=== PATIENT | female | born 1945 | race Caucasian/White ===

== ENCOUNTER 2018-04-08 11:46 | Emergency (ER) | payer OTHER ==
--- NOTE | 2018-04-08 12:01 | PDOC ---
Rapid Medical Evaluation Medical Evaluation: Allergies Allergy/AdvReac Type Severity Reaction Status Date / Time cefaclor [From Ceclor] Allergy Mild Hives Verified 10/22/17 06:41 furosemide [From Lasix] Allergy Verified 10/22/17 06:41 I have performed a brief in-person evaluation of this patient. The patient presents with a chief complaint of: Hx of HTN, metastatic breast CA , pre-DM; c/o elevated BP today; has mild VALENZUELA; denies N/V, CP, blurred vision, numbness/tingling/weakness of extremities; is compliant with her BP meds and took them this morning Pertinent physical exam findings: In NAD, no gross focal deficits I have ordered the following: Labs, EKG The patient will proceed to the ED for further evaluation. 04/08/18 11:57
[2018-04-08 12:04] VITALS: BMI 30.2
[2018-04-08] MEDS ORDERED: amLODIPine BESYLATE 5 MG TABLET (FP) PO ONE (12:05)
--- NOTE | 2018-04-08 12:31 | PDOC ---
Attending Attestation - HPI HPI: 04/08/18 13:46 The patient is a 72 year old female, with a significant past medical history of hypertension, diabetes, hypothyroidism, lung cancer status post left lobectomy and metastatic breast cancer, who presents to the emergency department with elevated blood pressure. The patient reports a mild headache she states that this is the typical headache she gets when her blood pressure is elevated. She reports that she went to an urgent care this morning but was referred to the emergency department because her blood pressure was 200s/100s. She denies blurry vision, shortness of breath, chest pain, nausea, vomiting or any numbness /tingling/weakness of his extremities. The patient states that she took her blood pressure medications this morning. Allergies: Cefaclor; Hydrochlorothiazide. Past Surgical History: Left Lobectomy. Social History: Former smoker (quit in 2005). Denies alcohol or drug use. PCP: Dr. Graves - Physicial Exam PE: 04/08/18 13:46 GENERAL: The patient is in no acute distress. HEAD: Normal with no signs of trauma. EYES: PERRLA, EOMI, sclera anicteric, conjunctiva clear. ENT: Ears normal, nares patent, oropharynx clear without exudates. Moist mucous membranes. NECK: Normal range of motion, supple without lymphadenopathy, JVD, or masses. LUNGS: Breath sounds equal, clear to auscultation bilaterally. No wheezes, no crackles. HEART: Regular rate and rhythm, normal S1 and S2 without murmur, rub or gallop. ABDOMEN: Soft, nontender, normoactive bowel sounds. No guarding, no rebound. No masses palpable. EXTREMITIES: +1 pitting edema bilaterally. Normal range of motion. No clubbing or cyanosis. No erythema, or tenderness. NEUROLOGICAL: Cranial nerves II through XII grossly intact. Normal speech. No focal neurological deficits. MUSCULOSKELETAL: Back nontender to palpation. No CVA tenderness. SKIN: Warm, dry, normal turgor, no rashes or lesions noted. Documentation prepared by Rae Metzger, acting as medical care administrator for Isa Back MD. <Rae Faye - Last Filed: 04/08/18 13:46> - Resident Resident Name: Ye Middleton - ED Attending Attestation I have performed the following: I have examined & evaluated the patient, The case was reviewed & discussed with the resident, I agree w/resident's findings & plan, Exceptions are as noted - Medical Decision Making 04/08/18 13:33 72 yo F h/o Lung Cancer s/p lobectomy, h/o metastatic breast cancer being treated Presents to the ER with a complaint of elevated blood pressure She was seen in the urgent care today due to leg weakness Noted to have elevation in blood pressure Pt sent to the ER Pt reports having elevated blood pressure for several weeks (this was noted 2 weeks ago at Oral surgeon) EKG - NSR rate of 92 bpm, axis nml, intervals nml, no st elevation or depression , t waves flattened III, avF 04/09/18 10:26 Laboratory Tests 04/08/18 04/08/18 12:20 12:20 WBC 3.5 L Hgb 11.4 Hct 32.5 Plt Count 263 Creatine Kinase 162 Creatine Kinase Index 0.8 CK-MB (CK-2) 1.4 Troponin I < 0.02 04/09/18 10:26 No complaints of UTI UA positive Culture sent Will send Macrobid Call placed to pt pmd to update them on this patient's status They will see her in the office for follow up of her blood pressure clinical Impression: hypertension, initial presentation <Isa Back - Last Filed: 04/09/18 10:28>
[2018-04-08] MEDS ORDERED: amLODIPine BESYLATE 5 MG TABLET (FP) ONE (12:46)
[2018-04-08 12:56] LABS: BASO % 0.7 % (0-2.0); EOS % 0.9 % (0-4.5); HEMATOCRIT 32.5 % (32.4-45.2); HEMOGLOBIN 11.4 GM/dL (10.7-15.3); LYMPH % 27.5 % (8-40); MEAN CELL VOLUME 97.3 fl (80-96); MEAN PLT VOLUME 8.1 fl (7.5-11.1); MONO % 10.2 % (3.8-10.2); NEUT % 60.7 % (42.8-82.8); PLATELET COUNT 263 K/MM3 (134-434); RBC 3.34 M/mm3 (3.60-5.2); RDW 15.5 % (11.6-15.6); WHITE BLOOD COUNT 3.5 K/mm3 (4.0-10.0)
[2018-04-08] MEDS ORDERED: FUROSEMIDE 40 MG/4 ML INJECTABLE VIAL IVPUSH ONE (13:30)
[2018-04-08 13:42] LABS: ANION GAP 9 MMOL/L (8-16); BLOOD UREA NITROGEN 12 mg/dL (7-18); CALCIUM 9.8 mg/dL (8.5-10.1); CHLORIDE 106 mmol/L (98-107); CO2 25 mmol/L (21-32); CREATININE 1.3 mg/dL (0.55-1.3); GLUCOSE,RANDOM 100 mg/dL (74-106); POTASSIUM 4.6 mmol/L (3.5-5.1); SODIUM 140 mmol/L (136-145)
[2018-04-08 14:02] LABS: N-TERMINAL BNP 70.8 pg/ml (5-125)
[2018-04-08] MEDS ORDERED: FUROSEMIDE 40 MG/4 ML INJECTABLE VIAL ONE (14:05)
--- NOTE | 2018-04-08 14:23 | PDOC ---
History of Present Illness - General Chief Complaint: Blood Pressure Problem Stated Complaint: BLOOD PRESSURE PROBLEM Time Seen by Provider: 04/08/18 12:10 - History of Present Illness Initial Comments: 04/08/18 14:24 72F with pmh of htn presents to the ED with lung cancer s/p resection, high blood pressure and dm2 sent from urgent care for high blood pressure (202/100) and feeling of rubbery legs. Denies weakness, painful extremities. Developed a mild headache while waiting in the waiting room. Last BP check was 2 weeks ago at the dentist's office. Was also elevated at 202/ 100. PCP increased her dose of daily carvedilol but her BP was never rechecked after that. She briefly used to be on a diuretic but stopped because it made her feel dizzy. She now has leg swelling. Patient admits to a"terrible diet" due to limited type of foods she can eat ( only soft foods) due to her teeth problems. Denies fever, chest pain, shortness of breath, . 04/08/18 15:07 Past History - Past Medical History Allergies/Adverse Reactions: Allergies Allergy/AdvReac Type Severity Reaction Status Date / Time cefaclor [From Ceclor] Allergy Mild Hives Verified 04/08/18 11:57 hydrochlorothiazide Allergy Verified 04/08/18 13:29 Home Medications: Ambulatory Orders Alprazolam [Xanax] 0.5 mg PO BID PRN 05/26/14 Aspirin [ASA -] 81 mg PO DAILY 05/26/14 Atorvastatin Ca [Lipitor -] 20 mg PO HS 05/26/14 Docosahexanoic Acid/Epa [Fish Oil Softgel] 1 each PO DAILY 05/26/14 Levothyroxine [Synthroid -] 100 mcg PO DAILY 05/26/14 Metoprolol Succinate [Toprol Xl -] 1.5 tab PO DAILY 05/26/14 Potassium Chloride [Klor-Con] 20 meq PO DAILY 05/26/14 Tiotropium Turin [Spiriva -] 1 inh IH PRN PRN 05/26/14 Valsartan [Diovan] 2 tab PO DAILY 05/26/14 metFORMIN HCL [Glucophage -] 500 mg PO BID 05/26/14 Nitrofurantoin Monohyd/M-Cryst [Macrobid -] 100 mg PO BID #14 capsule 10/22/17 Cancer: Yes (H/O LUNG) COPD: No Diabetes: Yes (NIDM) HTN: Yes Psychiatric Problems: Yes (anxiety) Thyroid Disease: No (HYPO) - Surgical History Lung Surgery: Yes (1/3 LT LUNG REMOVED) - Immunization History Immunization Up to Date: Yes - Suicide/Smoking/Psychosocial Hx Smoking Status: No (QUIT 2006) Smoking History: Never smoked Have you smoked in the past 12 months: No Number of Cigarettes Smoked Daily: 0 Hx Alcohol Use: No Drug/Substance Use Hx: No Substance Use Type: None Review of Systems - Review of Systems Able to Perform ROS?: Yes Is the patient limited Pashto proficient: No Constitutional: No: Symptoms Reported HEENTM: No: Symptoms Reported Respiratory: No: Symptoms reported Cardiac (ROS): No: Symptoms Reported ABD/GI: No: Symptoms Reported : No: Symptoms Reported Musculoskeletal: No: Symptoms Reported Integumentary: Yes: Other (leg swelling) Neurological: No: Symptoms reported All Other Systems: Reviewed and Negative *Physical Exam - Vital Signs Last Vital Signs Temp Pulse Resp BP Pulse Ox 98.5 F 82 16 177/96 H 100 04/08/18 11:58 04/08/18 14:10 04/08/18 14:10 04/08/18 14:10 04/08/18 14:10 - Physical Exam General Appearance: Yes: Nourished, Appropriately Dressed. No: Apparent Distress HEENT: positive: EOMI, BERNIE, Normal ENT Inspection Respiratory/Chest: positive: Lungs Clear, Normal Breath Sounds. negative: Chest Tender, Respiratory Distress Cardiovascular: positive: Regular Rhythm, Regular Rate, S1, S2 Gastrointestinal/Abdominal: positive: Normal Bowel Sounds, Flat, Soft. negative : Tender Musculoskeletal: positive: Normal Inspection. negative: CVA Tenderness Extremity: positive: Delayed Capillary Refill, Other (skin tenting) Integumentary: positive: Other (bilateral pitting edema of b/l legs, worse on the right.) Moderate Sedation - Procedure Monitoring Vital Signs: Procedure Monitoring Vital Signs Temperature 98.5 F 04/08/18 11:58 Pulse Rate 82 04/08/18 14:10 Respiratory Rate 16 04/08/18 14:10 Blood Pressure 177/96 H 04/08/18 14:10 O2 Sat by Pulse Oximetry (%) 100 04/08/18 14:10 ED Treatment Course - LABORATORY CBC & Chemistry Diagram: 12/20/18 12:20 04/08/18 12:20 - ADDITIONAL ORDERS Additional order review: Laboratory Results 04/08/18 12:20 Sodium 140 Potassium 4.6 Chloride 106 Carbon Dioxide 25 Anion Gap 9 BUN 12 Creatinine 1.3 Creat Clearance w eGFR 40.38 Random Glucose 100 Calcium 9.8 Creatine Kinase 162 Creatine Kinase Index 0.8 CK-MB (CK-2) 1.4 Troponin I < 0.02 B-Natriuretic Peptide 70.8 04/08/18 12:20 RBC 3.34 L MCV 97.3 H MCHC 35.0 RDW 15.5 MPV 8.1 Neutrophils % 60.7 Lymphocytes % 27.5 D Monocytes % 10.2 Eosinophils % 0.9 Basophils % 0.7 - Medications Given in the ED: ED Medications Discontinued Medications Generic Name Dose Route Start Last Admin Trade Name Freq PRN Reason Stop Dose Admin Amlodipine Besylate 5 mg 04/08/18 12:05 04/08/18 12:54 Norvasc - PO 04/08/18 12:06 5 mg ONCE ONE Administration Furosemide 20 mg 04/08/18 13:30 04/08/18 14:14 Lasix Injection - IVPUSH 04/08/18 13:31 20 mg ONCE ONE Administration Medical Decision Making - Medical Decision Making 04/08/18 15:14 72f with uncontolled hypertension and b/l pitting edema. This patient hypertensive regimen in not controlled and she needs to be back on a diuretic. Will get basic labs to r/o metabolic 04/08/18 16:28 All labs negative, UA contaminated. Spoke to her PCp Dr. Loera who said patient is very not compliant with her medication.Will reach out to her for medication adjustment. BP down to 153 ok to dc *DC/Admit/Observation/Transfer Diagnosis at time of Disposition: Hypertension - Discharge Dispostion Disposition: HOME Condition at time of disposition: Improved Decision to Admit order: No - Referrals - Patient Instructions Printed Discharge Instructions: DI for High Blood Pressure Additional Instructions: Come back to the emergency department for any new, worsening or concerning symptom. - Post Discharge Activity
[2018-04-08 14:51] LABS: URINE APPEARANCE CLEAR; URINE BILIRUBIN NEGATIVE (<2.0 mg/dL); URINE COLOR LTYELLOW; URINE GLUCOSE (UA) NEGATIVE (NEGATIVE); URINE KETONE NEGATIVE (NEGATIVE); URINE LEUK ESTERASE 2+ (NEGATIVE); URINE NITRITE NEGATIVE (NEGATIVE); URINE PROTEIN NEGATIVE (NEGATIVE); URINE UROBILINOGEN NEGATIVE mg/dL (0.2-1.0)
[2018-04-08 16:00] LABS: EPI CELLS 2+ /HPF (FEW); URINE BACTERIA 1+ /hpf (NONE SEEN)
[2018-04-08 16:19] VITALS: BP 159/98; PULSE 90; TEMP 98
--- NOTE | 2018-04-08 16:57 | EKG ---
Test Reason : Blood Pressure : / mmHG Vent. Rate : 092 BPM Atrial Rate : 092 BPM P-R Int : 148 ms QRS Dur : 074 ms QT Int : 342 ms P-R-T Axes : 047 -11 012 degrees QTc Int : 422 ms POOR DATA QUALITY, INTERPRETATION MAY BE ADVERSELY AFFECTED NORMAL SINUS RHYTHM MINIMAL VOLTAGE CRITERIA FOR LVH, MAY BE NORMAL VARIANT CANNOT RULE OUT ANTERIOR INFARCT (CITED ON OR BEFORE 22-OCT-2017) ABNORMAL ECG WHEN COMPARED WITH ECG OF 22-OCT-2017 05:48, INVERTED T WAVES HAVE REPLACED NONSPECIFIC T WAVE ABNORMALITY IN INFERIOR LEADS Confirmed by VELIA ZUNIGA MD ([id number]) on 04/08/2018 4:57:00 PM Referred By: Confirmed By:VELIA ZUNIGA MD
== END 2018-04-08 17:00 | disposition home or self-care (01) ==
LOC: JER 11:46
PROC: 3E033GC Introduction of Other Therapeutic Substance into Peripheral Vein, Percutaneous Approach (ICD-10-PCS; principal; 2018-04-08)
DX: I10 Essential (primary) hypertension (principal); E11.9 Type 2 diabetes mellitus without complications; Z79.84 Long term (current) use of oral hypoglycemic drugs; E03.9 Hypothyroidism, unspecified; Z85.118 Personal history of other malignant neoplasm of bronchus and lung; Z85.3 Personal history of malignant neoplasm of breast; Z90.2 Acquired absence of lung [part of]
CPT/HCPCS: 36415; 80048; 81003; 81015; 82550; 82553; 83880; 84484; 85025; 87086; 93005; 93010; 99284-25

== ENCOUNTER 2020-10-30 17:06 | Inpatient (IN) | payer OTHER ==
[2020-10-30 20:03] LABS: HEMATOCRIT 32.9 % (32.4-45.2); HEMOGLOBIN 10.8 GM/dL (10.7-15.3); LYMPH % 4.2 % (8-40); MCH 29.1 pg (25.7-33.7); MCHC 32.7 g/dl (32.0-36.0); MEAN CELL VOLUME 88.9 fl (80-96); MEAN PLT VOLUME 7.9 fl (7.5-11.1); MONO % 6.5 % (3.8-10.2); NEUT % 88.3 % (42.8-82.8); PLATELET COUNT 339 10^3/uL (134-434); RDW 16.5 % (11.6-15.6); WHITE BLOOD COUNT 10.8 K/mm3 (4.0-10.0)
[2020-10-30 20:22] LABS: CHLORIDE 108 mmol/L (98-107); SODIUM 137 mmol/L (136-145)
[2020-10-30 20:24] LABS: ALBUMIN 1.8 g/dl (3.4-5.0); ANION GAP 9 MMOL/L (8-16); BLOOD UREA NITROGEN 22.6 mg/dL (7-18); CALCIUM 8.1 mg/dL (8.5-10.1); CO2 20 mmol/L (21-32); GLUCOSE,RANDOM 69 mg/dL (74-106)
[2020-10-30 20:27] LABS: CREATININE 1.3 mg/dL (0.55-1.3); SGOT/AST 54 U/L (15-37); SGPT/ALT 12 U/L (13-61)
[2020-10-30 20:29] LABS: TOT PROT 7.4 g/dl (6.4-8.2)
[2020-10-30 20:30] LABS: ALK PHOS 254 U/L (45-117); BILIRUBIN,TOTAL 0.4 mg/dL (0.2-1)
[2020-10-30] MEDS ORDERED: SODIUM CHLORIDE 0.9% 1000 ML INFUS.BAG IV ONE (20:55)
[2020-10-30 21:26] LABS: ANISOCYTOSIS 0; MACROCYTOSIS 0; PLATELET ESTIMATE NORMAL
[2020-10-30] MEDS ORDERED: DEXTROSE 50%-WATER - 25 GM/50 ML VIAL IVPUSH ONE (21:33)
[2020-10-30] MEDS ORDERED: DEXTROSE 50%-WATER 25 GM/50 ML DISP.SYRIN ONE (21:36)
[2020-10-30 21:44] LABS: EPI CELLS 5 /uL (0-25.1); HYALINE CASTS 10 /uL (0-3.1); PH,URINE 5.5 (5.0-8.0); URINE APPEARANCE TURBID; URINE BACTERIA 395 /uL (0-1359); URINE BILIRUBIN NEGATIVE (NEGATIVE); URINE COLOR DK YELLOW; URINE GLUCOSE (UA) NEGATIVE (NEGATIVE); URINE KETONE TRACE (NEGATIVE); URINE LEUK ESTERASE 3+ (NEGATIVE); URINE NITRITE NEGATIVE (NEGATIVE); URINE PROTEIN 2+ (NEGATIVE); URINE RBC 34 /uL (0-23.9); URINE WBC 642 /uL (0-25.8)
[2020-10-30] MEDS ORDERED: SULFAMETHOXAZOLE/TRIMETHOPRIM 800MG/160MG D.S. TABLET PO ONE (21:50)
[2020-10-30] MEDS ORDERED: SULFAMETHOXAZOLE/TRIMETHOPRIM 800MG/160MG D.S. TABLET ONE (22:41)
[2020-10-30 23:29] LABS: YEAST NONE SEEN (NEGATIVE)
[2020-10-31 04:29] VITALS: BMI 22.7
[2020-10-31] MEDS: INSULIN SLIDING SCALE (NOVOLOG) 1 VIAL SQ SCH ×4 (06:17→22:23)
[2020-10-31] MEDS ORDERED: ASPIRIN 325 MG ENTERIC COATED TABLET (FP) PO ONE (06:45)
[2020-10-31 07:55] LABS: BASO % 0.4 % (0-2.0); EOS % 0.1 % (0-4.5); HEMATOCRIT 26.2 % (32.4-45.2); HEMOGLOBIN 8.8 GM/dL (10.7-15.3); LYMPH % 6.6 % (8-40); MCH 29.7 pg (25.7-33.7); MCHC 33.4 g/dl (32.0-36.0); MEAN CELL VOLUME 88.9 fl (80-96); MEAN PLT VOLUME 7.6 fl (7.5-11.1); MONO % 8.8 % (3.8-10.2); NEUT % 84.1 % (42.8-82.8); PLATELET COUNT 282 10^3/uL (134-434); RBC 2.95 M/mm3 (3.60-5.2); RDW 16.3 % (11.6-15.6); WHITE BLOOD COUNT 10.7 K/mm3 (4.0-10.0)
[2020-10-31 08:08] LABS: ALBUMIN 1.7 g/dl (3.4-5.0); BLOOD UREA NITROGEN 23.8 mg/dL (7-18); MAGNESIUM 2.3 mg/dL (1.8-2.4)
[2020-10-31 08:11] LABS: CREATININE 1.3 mg/dL (0.55-1.3); PHOSPHOROUS 3.9 mg/dL (2.5-4.9)
[2020-10-31 08:12] LABS: BILIRUBIN,TOTAL 0.4 mg/dL (0.2-1)
[2020-10-31 08:13] LABS: TOT PROT 6.4 g/dl (6.4-8.2)
[2020-10-31 08:14] LABS: CHOLESTEROL 127 mg/dL (50-200); TRIGLYCERIDES 151 mg/dL (0-150)
[2020-10-31 08:15] LABS: LDL CHOLESTEROL (ONLY SJRH) 69 mg/dL (5-100)
[2020-10-31 08:17] LABS: HDL CHOLESTEROL 23 mg/dL (40-60)
[2020-10-31] MEDS: HEPARIN NA (PORCINE) 5,000 UNITS/ML 1ML VIAL SQ SCH ×2 (11:00→22:22)
[2020-10-31] MEDS: DEXTROSE 5%-LACTATED RINGERS 1,000 ML IV SCH (11:15)
[2020-10-31] MEDS: ALPRAZolam 0.25 MG TABLET PO PRN (16:48)
[2020-10-31] MEDS ORDERED: ATORVASTATIN CA 20 MG TABLET (FP) PO SCH (22:00)
[2020-11-01] MEDS: ALPRAZolam 0.25 MG TABLET PO PRN ×2 (03:19→21:11)
[2020-11-01] MEDS: INSULIN SLIDING SCALE (NOVOLOG) 1 VIAL SQ SCH ×4 (06:03→21:19)
[2020-11-01] MEDS: DEXTROSE 5%-LACTATED RINGERS 1,000 ML IV SCH (06:04)
[2020-11-01] MEDS ORDERED: LEVOTHYROXINE NA 88 MCG TABLET (FP) PO SCH (07:00)
[2020-11-01 07:36] LABS: BASO % 0.5 % (0-2.0); EOS % 0.1 % (0-4.5); HEMATOCRIT 26.5 % (32.4-45.2); HEMOGLOBIN 8.7 GM/dL (10.7-15.3); LYMPH % 7.9 % (8-40); MCH 29.1 pg (25.7-33.7); MCHC 32.8 g/dl (32.0-36.0); MEAN CELL VOLUME 88.8 fl (80-96); MEAN PLT VOLUME 7.8 fl (7.5-11.1); MONO % 7.3 % (3.8-10.2); NEUT % 84.2 % (42.8-82.8); PLATELET COUNT 252 10^3/uL (134-434); RBC 2.98 M/mm3 (3.60-5.2); RDW 16.6 % (11.6-15.6); WHITE BLOOD COUNT 8.7 K/mm3 (4.0-10.0)
[2020-11-01 08:13] LABS: CALCIUM 8.1 mg/dL (8.5-10.1)
[2020-11-01 08:14] LABS: ALBUMIN 1.8 g/dl (3.4-5.0)
[2020-11-01 08:17] LABS: CREATININE 1.4 mg/dL (0.55-1.3)
[2020-11-01 08:18] LABS: BILIRUBIN,TOTAL 0.3 mg/dL (0.2-1)
[2020-11-01 08:19] LABS: TOT PROT 6.7 g/dl (6.4-8.2)
[2020-11-01] MEDS ORDERED: LEVOTHYROXINE NA 100 MCG TABLET (FP) PO SCH (10:00)
[2020-11-01] MEDS: VALSARTAN 160 MG TABLET PO SCH ×2 (11:14→11:20)
[2020-11-01] MEDS: ASPIRIN 81 MG CHEWABLE TABLETS PO SCH ×2 (11:14→11:20)
[2020-11-01] MEDS: OMEGA-3 ACID ETHYL ESTERS (FATTY-ACIDS) 1 GM CAPSULE (FP) PO SCH ×2 (11:14→11:19)
[2020-11-01] MEDS: metoPROLOL SUCCINATE 25 MG TAB.SR.24H (FP) PO SCH ×2 (11:15→11:21)
[2020-11-01] MEDS: POTASSIUM CHLORIDE TABS 20 MEQ TABLET.ER (FP) PO SCH ×2 (11:15→11:21)
[2020-11-01] MEDS: HEPARIN NA (PORCINE) 5,000 UNITS/ML 1ML VIAL SQ SCH ×3 (11:15→21:12)
[2020-11-01] MEDS: TIOTROPIUM BROMIDE 2.5 MCG (SPIRIVA) RESPIMAT INHALER IH SCH ×2 (11:16→11:21)
[2020-11-01 14:48] LABS: BASO % 0.2 % (0-2.0); EOS % 0.1 % (0-4.5); HEMATOCRIT 28.7 % (32.4-45.2); HEMOGLOBIN 9.2 GM/dL (10.7-15.3); LYMPH % 7.3 % (8-40); MCH 28.7 pg (25.7-33.7); MEAN CELL VOLUME 89.9 fl (80-96); MEAN PLT VOLUME 7.9 fl (7.5-11.1); MONO % 8.3 % (3.8-10.2); NEUT % 84.1 % (42.8-82.8); PLATELET COUNT 268 10^3/uL (134-434); RBC 3.19 M/mm3 (3.60-5.2); RDW 16.1 % (11.6-15.6); WHITE BLOOD COUNT 10.1 K/mm3 (4.0-10.0)
[2020-11-01] MEDS: AMINO ACIDS/PROTEIN HYDROLYS 30 ML LIQUID.PKT PO SCH (16:59)
[2020-11-01] MEDS: ATORVASTATIN CA 20 MG TABLET (FP) PO SCH ×2 (21:11→23:59)
[2020-11-02] MEDS: LEVOTHYROXINE NA 88 MCG TABLET (FP) PO SCH (06:57)
[2020-11-02] MEDS: INSULIN SLIDING SCALE (NOVOLOG) 1 VIAL SQ SCH ×4 (06:57→22:06)
[2020-11-02 09:11] LABS: BASO % 0.2 % (0-2.0); EOS % 0.1 % (0-4.5); HEMATOCRIT 27.3 % (32.4-45.2); HEMOGLOBIN 8.8 GM/dL (10.7-15.3); LYMPH % 3.2 % (8-40); MCH 28.6 pg (25.7-33.7); MCHC 32.2 g/dl (32.0-36.0); MEAN PLT VOLUME 7.8 fl (7.5-11.1); MONO % 4.7 % (3.8-10.2); NEUT % 91.8 % (42.8-82.8); PLATELET COUNT 233 10^3/uL (134-434); RBC 3.06 M/mm3 (3.60-5.2); RDW 16.7 % (11.6-15.6); WHITE BLOOD COUNT 12.6 K/mm3 (4.0-10.0)
[2020-11-02 09:32] LABS: ALBUMIN 1.7 g/dl (3.4-5.0); CALCIUM 8.3 mg/dL (8.5-10.1)
[2020-11-02 09:36] LABS: CREATININE 1.5 mg/dL (0.55-1.3)
[2020-11-02 09:37] LABS: BILIRUBIN,TOTAL 0.8 mg/dL (0.2-1); TOT PROT 6.3 g/dl (6.4-8.2)
[2020-11-02] MEDS ORDERED: PT OWN MED DRAWER 7, Y5N ONE (10:16)
[2020-11-02] MEDS: metoPROLOL SUCCINATE 25 MG TAB.SR.24H (FP) PO SCH (10:21)
[2020-11-02] MEDS: VALSARTAN 160 MG TABLET PO SCH (10:21)
[2020-11-02] MEDS: ALPRAZolam 0.25 MG TABLET PO PRN (10:21)
[2020-11-02] MEDS: POTASSIUM CHLORIDE TABS 20 MEQ TABLET.ER (FP) PO SCH (10:22)
[2020-11-02] MEDS: OMEGA-3 ACID ETHYL ESTERS (FATTY-ACIDS) 1 GM CAPSULE (FP) PO SCH (10:22)
[2020-11-02] MEDS: ASPIRIN 81 MG CHEWABLE TABLETS PO SCH (10:22)
[2020-11-02] MEDS: HEPARIN NA (PORCINE) 5,000 UNITS/ML 1ML VIAL SQ SCH ×2 (10:22→22:06)
[2020-11-02] MEDS: MULTIVITAMINS (DAILY MVI) TABLET (FP) PO SCH (10:22)
[2020-11-02] MEDS: AMINO ACIDS/PROTEIN HYDROLYS 30 ML LIQUID.PKT PO SCH ×2 (10:22→17:15)
[2020-11-02] MEDS: TIOTROPIUM BROMIDE 2.5 MCG (SPIRIVA) RESPIMAT INHALER IH SCH (10:31)
[2020-11-02 10:35] LABS: ANISOCYTOSIS 0; MACROCYTOSIS 0; PLATELET ESTIMATE NORMAL
[2020-11-02 17:58] LABS: EPI CELLS 18 /uL (0-25.1); HYALINE CASTS 16 /uL (0-3.1); URINE APPEARANCE TURBID; URINE BILIRUBIN NEGATIVE (NEGATIVE); URINE COLOR DK YELLOW; URINE GLUCOSE (UA) NEGATIVE (NEGATIVE); URINE KETONE NEGATIVE (NEGATIVE); URINE LEUK ESTERASE 3+ (NEGATIVE); URINE NITRITE NEGATIVE (NEGATIVE); URINE PROTEIN 2+ (NEGATIVE); URINE WBC 5411 /uL (0-25.8)
[2020-11-02 20:12] LABS: URINE BACTERIA 304.2 /uL (0-1359); URINE RBC 497.9 /uL (0-23.9); YEAST MODERATE (NEGATIVE)
[2020-11-02 20:16] LABS: EPI CELLS 16 /uL (0-25.1); HYALINE CASTS 9 /uL (0-3.1); PH,URINE 5.5 (5.0-8.0); URINE APPEARANCE TURBID; URINE BACTERIA 135 /uL (0-1359); URINE BILIRUBIN NEGATIVE (NEGATIVE); URINE COLOR YELLOW; URINE GLUCOSE (UA) NEGATIVE (NEGATIVE); URINE KETONE TRACE (NEGATIVE); URINE LEUK ESTERASE 3+ (NEGATIVE); URINE NITRITE NEGATIVE (NEGATIVE); URINE PROTEIN 2+ (NEGATIVE); URINE WBC 1031 /uL (0-25.8)
[2020-11-02 20:17] LABS: URINE RBC 663.2 /uL (0-23.9)
[2020-11-02 20:18] LABS: YEAST MODERATE (NEGATIVE)
[2020-11-02] MEDS ORDERED: INSULIN (NOVOLOG) ASPART 100 UNITS/ML 10ML VIAL ONE (20:40)
[2020-11-02] MEDS: ATORVASTATIN CA 20 MG TABLET (FP) PO SCH (22:06)
[2020-11-03] MEDS: LEVOTHYROXINE NA 88 MCG TABLET (FP) PO SCH (06:17)
[2020-11-03] MEDS: INSULIN SLIDING SCALE (NOVOLOG) 1 VIAL SQ SCH ×4 (06:21→21:23)
[2020-11-03 08:31] LABS: BASO % 0.5 % (0-2.0); EOS % 0.3 % (0-4.5); HEMATOCRIT 27.5 % (32.4-45.2); HEMOGLOBIN 8.6 GM/dL (10.7-15.3); LYMPH % 3.4 % (8-40); MCH 28.2 pg (25.7-33.7); MCHC 31.3 g/dl (32.0-36.0); MEAN CELL VOLUME 90.2 fl (80-96); MEAN PLT VOLUME 8.1 fl (7.5-11.1); MONO % 3.5 % (3.8-10.2); NEUT % 92.3 % (42.8-82.8); PLATELET COUNT 207 10^3/uL (134-434); RBC 3.05 M/mm3 (3.60-5.2); RDW 16.8 % (11.6-15.6); WHITE BLOOD COUNT 12.6 K/mm3 (4.0-10.0)
[2020-11-03 08:54] LABS: ALBUMIN 1.5 g/dl (3.4-5.0); BLOOD UREA NITROGEN 26.3 mg/dL (7-18)
[2020-11-03 08:57] LABS: CREATININE 1.8 mg/dL (0.55-1.3)
[2020-11-03 08:59] LABS: BILIRUBIN,TOTAL 0.4 mg/dL (0.2-1); TOT PROT 5.9 g/dl (6.4-8.2)
[2020-11-03] MEDS: POTASSIUM CHLORIDE TABS 20 MEQ TABLET.ER (FP) PO SCH (09:45)
[2020-11-03] MEDS: ASPIRIN 81 MG CHEWABLE TABLETS PO SCH (09:45)
[2020-11-03] MEDS: AMINO ACIDS/PROTEIN HYDROLYS 30 ML LIQUID.PKT PO SCH ×3 (09:45→17:23)
[2020-11-03] MEDS: OMEGA-3 ACID ETHYL ESTERS (FATTY-ACIDS) 1 GM CAPSULE (FP) PO SCH (09:46)
[2020-11-03] MEDS: HEPARIN NA (PORCINE) 5,000 UNITS/ML 1ML VIAL SQ SCH ×2 (09:46→21:06)
[2020-11-03] MEDS: MULTIVITAMINS (DAILY MVI) TABLET (FP) PO SCH (09:46)
[2020-11-03] MEDS: metoPROLOL SUCCINATE 25 MG TAB.SR.24H (FP) PO SCH (09:51)
[2020-11-03] MEDS: VALSARTAN 160 MG TABLET PO SCH (09:51)
[2020-11-03 10:23] LABS: ANISOCYTOSIS 1+; MACROCYTOSIS 0; PLATELET ESTIMATE NORMAL; ROULEAU 1+
[2020-11-03] MEDS: ALPRAZolam 0.25 MG TABLET PO PRN (12:46)
[2020-11-03] MEDS: TIOTROPIUM BROMIDE 2.5 MCG (SPIRIVA) RESPIMAT INHALER IH SCH ×2 (12:50→12:55)
[2020-11-03] MEDS ORDERED: FLUCONAZOLE 100 MG TABLET (UD) PO ONE (13:00)
[2020-11-03] MEDS ORDERED: PT OWN MED DRAWER 7, Y5N ONE (14:41)
[2020-11-03] MEDS: ATORVASTATIN CA 20 MG TABLET (FP) PO SCH (21:07)
[2020-11-04] MEDS: INSULIN SLIDING SCALE (NOVOLOG) 1 VIAL SQ SCH ×4 (06:08→22:43)
[2020-11-04] MEDS: LEVOTHYROXINE NA 88 MCG TABLET (FP) PO SCH (06:39)
[2020-11-04] MEDS: AMINO ACIDS/PROTEIN HYDROLYS 30 ML LIQUID.PKT PO SCH ×2 (09:38→16:57)
[2020-11-04] MEDS: ALPRAZolam 0.25 MG TABLET PO PRN (10:08)
[2020-11-04] MEDS: ASPIRIN 81 MG CHEWABLE TABLETS PO SCH (10:09)
[2020-11-04] MEDS: MULTIVITAMINS (DAILY MVI) TABLET (FP) PO SCH (10:09)
[2020-11-04] MEDS: HEPARIN NA (PORCINE) 5,000 UNITS/ML 1ML VIAL SQ SCH ×2 (10:09→22:38)
[2020-11-04] MEDS: POTASSIUM CHLORIDE TABS 20 MEQ TABLET.ER (FP) PO SCH (10:09)
[2020-11-04] MEDS: OMEGA-3 ACID ETHYL ESTERS (FATTY-ACIDS) 1 GM CAPSULE (FP) PO SCH (10:09)
[2020-11-04] MEDS: TIOTROPIUM BROMIDE 2.5 MCG (SPIRIVA) RESPIMAT INHALER IH SCH (10:10)
[2020-11-04] MEDS: metoPROLOL SUCCINATE 25 MG TAB.SR.24H (FP) PO SCH (10:10)
[2020-11-04 12:07] LABS: BASO % 0.3 % (0-2.0); EOS % 0.3 % (0-4.5); HEMATOCRIT 28.4 % (32.4-45.2); HEMOGLOBIN 8.9 GM/dL (10.7-15.3); LYMPH % 3.6 % (8-40); MCH 28.3 pg (25.7-33.7); MCHC 31.3 g/dl (32.0-36.0); MEAN CELL VOLUME 90.5 fl (80-96); MEAN PLT VOLUME 8.2 fl (7.5-11.1); MONO % 2.7 % (3.8-10.2); NEUT % 93.1 % (42.8-82.8); PLATELET COUNT 226 10^3/uL (134-434); RBC 3.14 M/mm3 (3.60-5.2); RDW 16.8 % (11.6-15.6); WHITE BLOOD COUNT 15.3 K/mm3 (4.0-10.0)
[2020-11-04 12:27] LABS: CALCIUM 7.9 mg/dL (8.5-10.1)
[2020-11-04 12:28] LABS: ALBUMIN 1.4 g/dl (3.4-5.0); BLOOD UREA NITROGEN 29.8 mg/dL (7-18)
[2020-11-04 12:31] LABS: CREATININE 2.2 mg/dL (0.55-1.3)
[2020-11-04 12:32] LABS: BILIRUBIN,TOTAL 0.5 mg/dL (0.2-1)
[2020-11-04] MEDS: VALSARTAN 160 MG TABLET PO SCH (12:58)
[2020-11-04] MEDS: FLUCONAZOLE 100 MG TABLET (UD) PO SCH (13:05)
[2020-11-04 13:13] LABS: ANISOCYTOSIS 0; MACROCYTOSIS 0; OVALOCYTE 1+; PLATELET ESTIMATE NORMAL; TEAR DROP CELLS 1+
[2020-11-04] MEDS ORDERED: LOPERAMIDE HCL 2 MG CAPSULE PO ONE (16:15)
[2020-11-04] MEDS: LACTOBACILLUS ACIDOPHILUS 1 TABLET PO SCH (16:56)
[2020-11-04] MEDS: ATORVASTATIN CA 20 MG TABLET (FP) PO SCH (22:39)
[2020-11-05] MEDS ORDERED: SODIUM CHLORIDE 500 ML IV STA (05:56)
[2020-11-05] MEDS ORDERED: DEXTROSE 50%-WATER - 25 GM/50 ML VIAL IVPUSH ONE (05:58)
[2020-11-05] MEDS: INSULIN SLIDING SCALE (NOVOLOG) 1 VIAL SQ SCH ×4 (06:07→21:26)
[2020-11-05] MEDS: LEVOTHYROXINE NA 88 MCG TABLET (FP) PO SCH (06:08)
[2020-11-05] MEDS ORDERED: GLUCAGON 1 MG KIT IM ONE (06:32)
[2020-11-05] MEDS ORDERED: PT OWN MED DRAWER 7, Y5N ONE (09:27)
[2020-11-05] MEDS: AMINO ACIDS/PROTEIN HYDROLYS 30 ML LIQUID.PKT PO SCH ×2 (09:53→18:03)
[2020-11-05] MEDS: ASPIRIN 81 MG CHEWABLE TABLETS PO SCH (09:54)
[2020-11-05] MEDS: FLUCONAZOLE 100 MG TABLET (UD) PO SCH (09:54)
[2020-11-05] MEDS: LACTOBACILLUS ACIDOPHILUS 1 TABLET PO SCH (09:54)
[2020-11-05] MEDS: MULTIVITAMINS (DAILY MVI) TABLET (FP) PO SCH (09:54)
[2020-11-05] MEDS: POTASSIUM CHLORIDE TABS 20 MEQ TABLET.ER (FP) PO SCH (09:55)
[2020-11-05] MEDS: metoPROLOL SUCCINATE 25 MG TAB.SR.24H (FP) PO SCH (09:56)
[2020-11-05] MEDS: HEPARIN NA (PORCINE) 5,000 UNITS/ML 1ML VIAL SQ SCH ×2 (09:56→21:25)
[2020-11-05] MEDS: OMEGA-3 ACID ETHYL ESTERS (FATTY-ACIDS) 1 GM CAPSULE (FP) PO SCH (10:16)
[2020-11-05 11:42] LABS: BASO % 0.5 % (0-2.0); EOS % 0.7 % (0-4.5); HEMATOCRIT 25.6 % (32.4-45.2); HEMOGLOBIN 8.3 GM/dL (10.7-15.3); LYMPH % 5.4 % (8-40); MCH 28.6 pg (25.7-33.7); MCHC 32.3 g/dl (32.0-36.0); MEAN CELL VOLUME 88.3 fl (80-96); MONO % 4.1 % (3.8-10.2); NEUT % 89.3 % (42.8-82.8); PLATELET COUNT 243 10^3/uL (134-434); RDW 17.3 % (11.6-15.6); WHITE BLOOD COUNT 11.7 K/mm3 (4.0-10.0)
[2020-11-05 12:10] LABS: ALBUMIN 1.4 g/dl (3.4-5.0); BLOOD UREA NITROGEN 36.2 mg/dL (7-18); CALCIUM 7.8 mg/dL (8.5-10.1)
[2020-11-05 12:14] LABS: BILIRUBIN,TOTAL 0.4 mg/dL (0.2-1); CREATININE 2.2 mg/dL (0.55-1.3); TOT PROT 5.7 g/dl (6.4-8.2)
[2020-11-05] MEDS ORDERED: SODIUM CHLORIDE 1,000 ML IV SCH (12:30)
[2020-11-05 12:49] LABS: ANISOCYTOSIS 0; HELMET CELLS 0; HOWELL-JOLLY BODIES 0; MACROCYTOSIS 0; OVALOCYTE 0; PLATELET ESTIMATE NORMAL; ROULEAU 0; SICKELED CELLS 0; TARGET CELLS 0; TEAR DROP CELLS 0; TOXIC GRANULATION 0
[2020-11-05] MEDS ORDERED: ALPRAZolam 0.25 MG TABLET PO PRN (13:14)
[2020-11-05] MEDS: DEXTROSE 5%-0.45% SALINE 1,000 ML IV SCH ×2 (13:20→23:06)
[2020-11-05] MEDS: TIOTROPIUM BROMIDE 2.5 MCG (SPIRIVA) RESPIMAT INHALER IH SCH (13:21)
[2020-11-05] MEDS: ATORVASTATIN CA 20 MG TABLET (FP) PO SCH (21:25)
[2020-11-06] MEDS: LEVOTHYROXINE NA 88 MCG TABLET (FP) PO SCH (06:27)
[2020-11-06] MEDS: INSULIN SLIDING SCALE (NOVOLOG) 1 VIAL SQ SCH ×4 (06:28→21:36)
[2020-11-06 07:48] LABS: BASO % 0.4 % (0-2.0); HEMATOCRIT 24.7 % (32.4-45.2); MCH 28.9 pg (25.7-33.7); MCHC 32.2 g/dl (32.0-36.0); MEAN CELL VOLUME 89.7 fl (80-96); MEAN PLT VOLUME 8.2 fl (7.5-11.1); MONO % 8.1 % (3.8-10.2); NEUT % 84.5 % (42.8-82.8); PLATELET COUNT 205 10^3/uL (134-434); RBC 2.76 M/mm3 (3.60-5.2); RDW 16.9 % (11.6-15.6); WHITE BLOOD COUNT 9.4 K/mm3 (4.0-10.0)
[2020-11-06 08:08] LABS: CALCIUM 7.6 mg/dL (8.5-10.1)
[2020-11-06 08:09] LABS: ALBUMIN 1.3 g/dl (3.4-5.0); BLOOD UREA NITROGEN 35.7 mg/dL (7-18)
[2020-11-06 08:11] LABS: CREATININE 2.2 mg/dL (0.55-1.3)
[2020-11-06 08:13] LABS: BILIRUBIN,TOTAL 0.3 mg/dL (0.2-1)
[2020-11-06 08:14] LABS: TOT PROT 5.6 g/dl (6.4-8.2)
[2020-11-06] MEDS: AMINO ACIDS/PROTEIN HYDROLYS 30 ML LIQUID.PKT PO SCH ×2 (09:00→16:48)
[2020-11-06] MEDS: DEXTROSE 5%-0.45% SALINE 1,000 ML IV SCH ×4 (10:14→23:51)
[2020-11-06] MEDS: MULTIVITAMINS (DAILY MVI) TABLET (FP) PO SCH (11:14)
[2020-11-06] MEDS: HEPARIN NA (PORCINE) 5,000 UNITS/ML 1ML VIAL SQ SCH ×2 (11:14→21:34)
[2020-11-06] MEDS: LACTOBACILLUS ACIDOPHILUS 1 TABLET PO SCH (11:15)
[2020-11-06] MEDS: ASPIRIN 81 MG CHEWABLE TABLETS PO SCH (11:15)
[2020-11-06] MEDS: FLUCONAZOLE 100 MG TABLET (UD) PO SCH (11:15)
[2020-11-06] MEDS: POTASSIUM CHLORIDE TABS 20 MEQ TABLET.ER (FP) PO SCH (11:15)
[2020-11-06] MEDS: OMEGA-3 ACID ETHYL ESTERS (FATTY-ACIDS) 1 GM CAPSULE (FP) PO SCH (11:16)
[2020-11-06] MEDS: metoPROLOL SUCCINATE 25 MG TAB.SR.24H (FP) PO SCH (11:17)
[2020-11-06] MEDS: TIOTROPIUM BROMIDE 2.5 MCG (SPIRIVA) RESPIMAT INHALER IH SCH (11:44)
[2020-11-06 11:53] LABS: ANISOCYTOSIS 0; MACROCYTOSIS 0; PLATELET ESTIMATE NORMAL
[2020-11-06] MEDS ORDERED: DEXTROSE 5%-0.45% SALINE 1,000 ML IV SCH (13:42)
[2020-11-06] MEDS ORDERED: ONDANSETRON 4 MG/2 ML VIAL IVPB PRN (13:43)
[2020-11-06] MEDS: POLYETHYLENE GLYCOL (HEALTHYLAX) 3350 17 GM PACKET PO SCH (14:14)
[2020-11-06] MEDS: NYSTATIN 100,000 UNIT/GM TOPICAL CREAM 15 GM TUBE TP SCH ×2 (15:15→21:35)
[2020-11-06] MEDS: COLLAGENASE CLOSTRIDIUM HIST. 30 GRAMS TUBE TP SCH (15:15)
[2020-11-06] MEDS ORDERED: SODIUM CHLORIDE 250 ML IV STA (18:49)
[2020-11-06] MEDS: ATORVASTATIN CA 20 MG TABLET (FP) PO SCH (21:34)
[2020-11-06] MEDS ORDERED: MIRTAZAPINE 15 MG TABLET (FP) PO SCH (22:00)
[2020-11-07] MEDS ORDERED: PT OWN MED DRAWER 7, Y5N ONE ×2 (05:08→10:53)
[2020-11-07] MEDS: INSULIN SLIDING SCALE (NOVOLOG) 1 VIAL SQ SCH ×4 (06:07→21:57)
[2020-11-07] MEDS: LEVOTHYROXINE NA 88 MCG TABLET (FP) PO SCH (06:07)
[2020-11-07 08:23] LABS: BASO % 0.4 % (0-2.0); EOS % 0.8 % (0-4.5); HEMATOCRIT 23.5 % (32.4-45.2); HEMOGLOBIN 7.6 GM/dL (10.7-15.3); LYMPH % 4.9 % (8-40); MCH 28.6 pg (25.7-33.7); MCHC 32.2 g/dl (32.0-36.0); MEAN CELL VOLUME 88.9 fl (80-96); MEAN PLT VOLUME 8.2 fl (7.5-11.1); MONO % 11.9 % (3.8-10.2); PLATELET COUNT 191 10^3/uL (134-434); RBC 2.64 M/mm3 (3.60-5.2); RDW 17.2 % (11.6-15.6); WHITE BLOOD COUNT 10.6 K/mm3 (4.0-10.0)
[2020-11-07 08:43] LABS: ALBUMIN 1.2 g/dl (3.4-5.0); CALCIUM 7.6 mg/dL (8.5-10.1)
[2020-11-07 08:45] LABS: BLOOD UREA NITROGEN 32.9 mg/dL (7-18)
[2020-11-07 08:46] LABS: BILIRUBIN,TOTAL 0.3 mg/dL (0.2-1)
[2020-11-07 08:47] LABS: CREATININE 2.2 mg/dL (0.55-1.3); TOT PROT 5.4 g/dl (6.4-8.2)
[2020-11-07] MEDS ORDERED: SODIUM CHLORIDE 0.9% 500 ML INFUS.BAG IV ONE (08:48)
[2020-11-07] MEDS: DEXTROSE 5%-0.45% SALINE 1,000 ML IV SCH (10:55)
[2020-11-07] MEDS: POTASSIUM CHLORIDE TABS 20 MEQ TABLET.ER (FP) PO SCH (10:56)
[2020-11-07] MEDS: LACTOBACILLUS ACIDOPHILUS 1 TABLET PO SCH (10:56)
[2020-11-07] MEDS: FLUCONAZOLE 100 MG TABLET (UD) PO SCH (10:56)
[2020-11-07] MEDS: AMINO ACIDS/PROTEIN HYDROLYS 30 ML LIQUID.PKT PO SCH ×2 (10:56→18:36)
[2020-11-07] MEDS: OMEGA-3 ACID ETHYL ESTERS (FATTY-ACIDS) 1 GM CAPSULE (FP) PO SCH (10:56)
[2020-11-07] MEDS: POLYETHYLENE GLYCOL (HEALTHYLAX) 3350 17 GM PACKET PO SCH (10:56)
[2020-11-07] MEDS: HEPARIN NA (PORCINE) 5,000 UNITS/ML 1ML VIAL SQ SCH ×2 (10:56→21:56)
[2020-11-07] MEDS: NYSTATIN 100,000 UNIT/GM TOPICAL CREAM 15 GM TUBE TP SCH ×2 (10:57→21:57)
[2020-11-07] MEDS: metoPROLOL SUCCINATE 25 MG TAB.SR.24H (FP) PO SCH (10:57)
[2020-11-07] MEDS: TIOTROPIUM BROMIDE 2.5 MCG (SPIRIVA) RESPIMAT INHALER IH SCH (10:57)
[2020-11-07] MEDS: COLLAGENASE CLOSTRIDIUM HIST. 30 GRAMS TUBE TP SCH (10:57)
[2020-11-07] MEDS: MULTIVITAMINS (DAILY MVI) TABLET (FP) PO SCH (11:00)
[2020-11-07 11:48] LABS: ANISOCYTOSIS 1+; MACROCYTOSIS 0; PLATELET ESTIMATE NORMAL
[2020-11-07] MEDS: AMINO ACIDS 4.25%/D5W 1,000 ML IV SCH (12:45)
[2020-11-07] MEDS: MIRTAZAPINE 15 MG TABLET (FP) PO SCH (21:56)
[2020-11-07] MEDS: ATORVASTATIN CA 20 MG TABLET (FP) PO SCH (21:56)
[2020-11-08] MEDS: INSULIN SLIDING SCALE (NOVOLOG) 1 VIAL SQ SCH ×4 (06:06→22:32)
[2020-11-08] MEDS: LEVOTHYROXINE NA 88 MCG TABLET (FP) PO SCH (06:21)
[2020-11-08 08:29] LABS: BASO % 0.4 % (0-2.0); EOS % 0.6 % (0-4.5); HEMATOCRIT 30.2 % (32.4-45.2); HEMOGLOBIN 9.7 GM/dL (10.7-15.3); LYMPH % 4.5 % (8-40); MCH 28.4 pg (25.7-33.7); MCHC 32.2 g/dl (32.0-36.0); MEAN CELL VOLUME 88.3 fl (80-96); MONO % 10.7 % (3.8-10.2); NEUT % 83.8 % (42.8-82.8); PLATELET COUNT 161 10^3/uL (134-434); RBC 3.42 M/mm3 (3.60-5.2); RDW 17.4 % (11.6-15.6); WHITE BLOOD COUNT 11.4 K/mm3 (4.0-10.0)
[2020-11-08 08:53] LABS: CALCIUM 7.5 mg/dL (8.5-10.1)
[2020-11-08 08:54] LABS: ALBUMIN 1.3 g/dl (3.4-5.0); BLOOD UREA NITROGEN 39.8 mg/dL (7-18)
[2020-11-08 08:58] LABS: BILIRUBIN,TOTAL 0.7 mg/dL (0.2-1); CREATININE 2.1 mg/dL (0.55-1.3); TOT PROT 5.6 g/dl (6.4-8.2)
[2020-11-08 09:32] LABS: ANISOCYTOSIS 0; HELMET CELLS 0; HOWELL-JOLLY BODIES 0; MACROCYTOSIS 0; OVALOCYTE 0; PLATELET ESTIMATE NORMAL; ROULEAU 0; SICKELED CELLS 0; TARGET CELLS 0; TEAR DROP CELLS 0; TOXIC GRANULATION 0
[2020-11-08] MEDS: AMINO ACIDS 4.25%/D5W 1,000 ML IV SCH ×4 (10:15→17:35)
[2020-11-08] MEDS: POTASSIUM CHLORIDE TABS 20 MEQ TABLET.ER (FP) PO SCH (10:16)
[2020-11-08] MEDS: NYSTATIN 100,000 UNIT/GM TOPICAL CREAM 15 GM TUBE TP SCH ×2 (10:16→22:34)
[2020-11-08] MEDS: FLUCONAZOLE 100 MG TABLET (UD) PO SCH (10:16)
[2020-11-08] MEDS: AMINO ACIDS/PROTEIN HYDROLYS 30 ML LIQUID.PKT PO SCH ×2 (10:16→17:36)
[2020-11-08] MEDS: MULTIVITAMINS (DAILY MVI) TABLET (FP) PO SCH (10:16)
[2020-11-08] MEDS: HEPARIN NA (PORCINE) 5,000 UNITS/ML 1ML VIAL SQ SCH ×2 (10:16→22:32)
[2020-11-08] MEDS: LACTOBACILLUS ACIDOPHILUS 1 TABLET PO SCH (10:16)
[2020-11-08] MEDS: POLYETHYLENE GLYCOL (HEALTHYLAX) 3350 17 GM PACKET PO SCH (10:16)
[2020-11-08] MEDS: COLLAGENASE CLOSTRIDIUM HIST. 30 GRAMS TUBE TP SCH (10:17)
[2020-11-08] MEDS: TIOTROPIUM BROMIDE 2.5 MCG (SPIRIVA) RESPIMAT INHALER IH SCH (10:17)
[2020-11-08] MEDS: ALPRAZolam 0.25 MG TABLET PO PRN ×2 (11:22→22:34)
[2020-11-08] MEDS ORDERED: MULTIVIT IV SCH (16:04)
[2020-11-08] MEDS ORDERED: [UNRECOGNIZED DRUG - OTHER] IV SCH (16:04)
[2020-11-08] MEDS ORDERED: AMINO ACIDS IV SCH (16:04)
[2020-11-08] MEDS ORDERED: ACETAMINOPHEN 1000 MG/100 ML VIAL (NON FORMULARY) IVPB PRN (16:21)
[2020-11-08] MEDS: MULTIVIT INJ. ADULT COMBO WITH VIT K 1 COMBO 10 ML VIAL IV SCH (17:35)
[2020-11-08] MEDS ORDERED: FAT EMULSIONS 20% 250 ML PREMIX INFUS.BAG IV SCH (22:00)
[2020-11-08] MEDS: ATORVASTATIN CA 20 MG TABLET (FP) PO SCH (22:33)
[2020-11-08] MEDS: MIRTAZAPINE 15 MG TABLET (FP) PO SCH (22:36)
[2020-11-08] MEDS: FAT EMULSIONS 250 ML IV SCH (23:07)
[2020-11-09] MEDS ORDERED: PT OWN MED DRAWER 7, Y5N ONE ×2 (05:18→09:34)
[2020-11-09] MEDS: LEVOTHYROXINE NA 88 MCG TABLET (FP) PO SCH (06:13)
[2020-11-09] MEDS: INSULIN SLIDING SCALE (NOVOLOG) 1 VIAL SQ SCH ×4 (06:14→22:07)
[2020-11-09] MEDS: FLUCONAZOLE 100 MG TABLET (UD) PO SCH (10:04)
[2020-11-09] MEDS: LACTOBACILLUS ACIDOPHILUS 1 TABLET PO SCH (10:04)
[2020-11-09] MEDS: POTASSIUM CHLORIDE TABS 20 MEQ TABLET.ER (FP) PO SCH (10:04)
[2020-11-09] MEDS: HEPARIN NA (PORCINE) 5,000 UNITS/ML 1ML VIAL SQ SCH ×2 (10:04→21:24)
[2020-11-09] MEDS: AMINO ACIDS/PROTEIN HYDROLYS 30 ML LIQUID.PKT PO SCH ×2 (10:04→17:16)
[2020-11-09] MEDS: POLYETHYLENE GLYCOL (HEALTHYLAX) 3350 17 GM PACKET PO SCH (10:05)
[2020-11-09] MEDS: NYSTATIN 100,000 UNIT/GM TOPICAL CREAM 15 GM TUBE TP SCH ×2 (10:05→21:25)
[2020-11-09] MEDS: COLLAGENASE CLOSTRIDIUM HIST. 30 GRAMS TUBE TP SCH (10:05)
[2020-11-09] MEDS: TIOTROPIUM BROMIDE 2.5 MCG (SPIRIVA) RESPIMAT INHALER IH SCH (10:06)
[2020-11-09] MEDS: MULTIVIT INJ. ADULT COMBO WITH VIT K 1 COMBO 10 ML VIAL IV SCH ×2 (11:10→17:16)
[2020-11-09] MEDS: AMINO ACIDS 4.25%/D5W 1,000 ML IV SCH ×2 (11:10→17:16)
[2020-11-09] MEDS ORDERED: INSULIN (NOVOLOG) ASPART 100 UNITS/ML 10ML VIAL ONE (20:35)
[2020-11-09] MEDS: FAT EMULSIONS 250 ML IV SCH (21:24)
[2020-11-09] MEDS: ATORVASTATIN CA 20 MG TABLET (FP) PO SCH (21:25)
[2020-11-09] MEDS: MIRTAZAPINE 15 MG TABLET (FP) PO SCH (21:25)
[2020-11-10] MEDS: LEVOTHYROXINE NA 88 MCG TABLET (FP) PO SCH (06:50)
[2020-11-10] MEDS: INSULIN SLIDING SCALE (NOVOLOG) 1 VIAL SQ SCH ×4 (06:50→21:24)
[2020-11-10] MEDS: LACTOBACILLUS ACIDOPHILUS 1 TABLET PO SCH (11:43)
[2020-11-10] MEDS: AMINO ACIDS/PROTEIN HYDROLYS 30 ML LIQUID.PKT PO SCH ×2 (11:43→17:52)
[2020-11-10] MEDS: POLYETHYLENE GLYCOL (HEALTHYLAX) 3350 17 GM PACKET PO SCH (11:44)
[2020-11-10] MEDS: TIOTROPIUM BROMIDE 2.5 MCG (SPIRIVA) RESPIMAT INHALER IH SCH (11:46)
[2020-11-10] MEDS: POTASSIUM CHLORIDE TABS 20 MEQ TABLET.ER (FP) PO SCH (11:49)
[2020-11-10] MEDS: FLUCONAZOLE 100 MG TABLET (UD) PO SCH (11:49)
[2020-11-10] MEDS: NYSTATIN 100,000 UNIT/GM TOPICAL CREAM 15 GM TUBE TP SCH ×2 (11:50→21:25)
[2020-11-10] MEDS: COLLAGENASE CLOSTRIDIUM HIST. 30 GRAMS TUBE TP SCH (11:51)
[2020-11-10] MEDS: HEPARIN NA (PORCINE) 5,000 UNITS/ML 1ML VIAL SQ SCH ×2 (11:52→21:24)
[2020-11-10] MEDS: AMINO ACIDS 4.25%/D5W 1,000 ML IV SCH ×2 (12:12→18:55)
[2020-11-10] MEDS: ALPRAZolam 0.25 MG TABLET PO PRN (13:55)
[2020-11-10] MEDS: MORPHINE SULFATE 2 MG/ML VIAL IVPUSH PRN (17:51)
[2020-11-10] MEDS: MULTIVIT INJ. ADULT COMBO WITH VIT K 1 COMBO 10 ML VIAL IV SCH (18:01)
[2020-11-10] MEDS ORDERED: INSULIN (NOVOLOG) ASPART 100 UNITS/ML 10ML VIAL ONE (20:43)
[2020-11-10] MEDS: FAT EMULSIONS 250 ML IV SCH (21:23)
[2020-11-10] MEDS: MIRTAZAPINE 15 MG TABLET (FP) PO SCH (21:24)
[2020-11-10] MEDS: ATORVASTATIN CA 20 MG TABLET (FP) PO SCH (21:24)
[2020-11-11] MEDS: AMINO ACIDS 4.25%/D5W 1,000 ML IV SCH ×3 (01:26→16:52)
[2020-11-11] MEDS: LEVOTHYROXINE NA 88 MCG TABLET (FP) PO SCH (06:43)
[2020-11-11] MEDS: INSULIN SLIDING SCALE (NOVOLOG) 1 VIAL SQ SCH ×4 (06:43→21:26)
[2020-11-11] MEDS: POLYETHYLENE GLYCOL (HEALTHYLAX) 3350 17 GM PACKET PO SCH ×2 (10:55→11:10)
[2020-11-11] MEDS: AMINO ACIDS/PROTEIN HYDROLYS 30 ML LIQUID.PKT PO SCH ×2 (10:55→17:40)
[2020-11-11] MEDS: HEPARIN NA (PORCINE) 5,000 UNITS/ML 1ML VIAL SQ SCH ×2 (10:56→21:25)
[2020-11-11] MEDS: POTASSIUM CHLORIDE TABS 20 MEQ TABLET.ER (FP) PO SCH ×2 (10:56→11:09)
[2020-11-11] MEDS: LACTOBACILLUS ACIDOPHILUS 1 TABLET PO SCH ×2 (10:56→11:10)
[2020-11-11] MEDS: NYSTATIN 100,000 UNIT/GM TOPICAL CREAM 15 GM TUBE TP SCH ×2 (10:57→22:51)
[2020-11-11] MEDS: TIOTROPIUM BROMIDE 2.5 MCG (SPIRIVA) RESPIMAT INHALER IH SCH ×2 (10:57→11:10)
[2020-11-11] MEDS: COLLAGENASE CLOSTRIDIUM HIST. 30 GRAMS TUBE TP SCH (10:57)
[2020-11-11] MEDS: MORPHINE SULFATE 2 MG/ML VIAL IVPUSH PRN (13:09)
[2020-11-11] MEDS: MULTIVIT INJ. ADULT COMBO WITH VIT K 1 COMBO 10 ML VIAL IV SCH ×2 (15:58→16:52)
[2020-11-11] MEDS: FAT EMULSION/OLIVE/SOY/PHOSPHO 250 ML IV SCH (21:25)
[2020-11-11] MEDS: ATORVASTATIN CA 20 MG TABLET (FP) PO SCH (21:25)
[2020-11-11] MEDS: MIRTAZAPINE 15 MG TABLET (FP) PO SCH (21:25)
[2020-11-12] MEDS: AMINO ACIDS 4.25%/D5W 1,000 ML IV SCH ×2 (04:16→17:36)
[2020-11-12] MEDS: LEVOTHYROXINE NA 88 MCG TABLET (FP) PO SCH (06:15)
[2020-11-12] MEDS: INSULIN SLIDING SCALE (NOVOLOG) 1 VIAL SQ SCH ×4 (06:15→22:30)
[2020-11-12] MEDS: POTASSIUM CHLORIDE TABS 20 MEQ TABLET.ER (FP) PO SCH (09:46)
[2020-11-12] MEDS: POLYETHYLENE GLYCOL (HEALTHYLAX) 3350 17 GM PACKET PO SCH (09:46)
[2020-11-12] MEDS: AMINO ACIDS/PROTEIN HYDROLYS 30 ML LIQUID.PKT PO SCH ×2 (09:46→17:36)
[2020-11-12] MEDS: LACTOBACILLUS ACIDOPHILUS 1 TABLET PO SCH (09:46)
[2020-11-12] MEDS: TIOTROPIUM BROMIDE 2.5 MCG (SPIRIVA) RESPIMAT INHALER IH SCH (09:47)
[2020-11-12] MEDS: HEPARIN NA (PORCINE) 5,000 UNITS/ML 1ML VIAL SQ SCH ×2 (09:50→22:26)
[2020-11-12] MEDS: NYSTATIN 100,000 UNIT/GM TOPICAL CREAM 15 GM TUBE TP SCH ×2 (09:50→22:31)
[2020-11-12] MEDS: COLLAGENASE CLOSTRIDIUM HIST. 30 GRAMS TUBE TP SCH (15:04)
[2020-11-12] MEDS: MULTIVIT INJ. ADULT COMBO WITH VIT K 1 COMBO 10 ML VIAL IV SCH (17:36)
[2020-11-12] MEDS: ATORVASTATIN CA 20 MG TABLET (FP) PO SCH (22:29)
[2020-11-12] MEDS: FAT EMULSION/OLIVE/SOY/PHOSPHO 250 ML IV SCH (22:30)
[2020-11-12] MEDS: MIRTAZAPINE 15 MG TABLET (FP) PO SCH (22:30)
[2020-11-12 23:02] VITALS: BP 91/32; PULSE 106; TEMP 97.5
== END 2020-11-13 02:35 | DRG 689 ==
LOC: JER 17:06 → JERBED 20:56 → J4W 10-31 03:45 → J7W 11-01 20:35 → UNDODISIN 11-08 18:42 → J8W 11-11 16:00
PROVIDERS: ADMIT Hospitalist; ATTEND Internal Medicine
DX: N39.0 Urinary tract infection, site not specified (principal); G93.41 Metabolic encephalopathy; C79.51 Secondary malignant neoplasm of bone; R18.8 Other ascites; E46 Unspecified protein-calorie malnutrition; C34.91 Malignant neoplasm of unspecified part of right bronchus or lung; E03.9 Hypothyroidism, unspecified; F41.9 Anxiety disorder, unspecified; E11.649 Type 2 diabetes mellitus with hypoglycemia without coma; N13.30 Unspecified hydronephrosis; I12.9 Hypertensive chronic kidney disease with stage 1 through stage 4 chronic kidney disease, or unspecified chronic kidney disease; E11.22 Type 2 diabetes mellitus with diabetic chronic kidney disease; B95.2 Enterococcus as the cause of diseases classified elsewhere; N18.9 Chronic kidney disease, unspecified; K74.60 Unspecified cirrhosis of liver; Z68.24 Body mass index [BMI] 24.0-24.9, adult; Z85.3 Personal history of malignant neoplasm of breast; Z93.6 Other artificial openings of urinary tract status
CPT/HCPCS: 36415; 36430; 70450-TC; 71045-TC-FY; 74018-TC-FY; 74176-TC; 74230-TC-FY; 80053; 80061; 81003; 82140; 82550; 82962; 83036; 83721; 83735; 83880; 84100; 84436; 84443; 84484; 85025; 86850; 86900; 86901; 86922; 87040; 87077; 87086; 87186; 92611-GN; 93005; 93010; 93306-TC; 93880-TC; 97116-GP; 97161-GP; 99285-25; C9803; J1644; P9058; U0003; U0005